=== PATIENT | male | born 1935 | race Caucasian/White ===

== ENCOUNTER → 2023-04-10 | Day surgery (SDC) | payer MEDICARE, OTHER ==
[~2023-04-10] VITALS: Ht 177.8 cm; Wt 79.8 kg
[~2023-04-10] MED LIST: ACET-2708 PO; ALLO300T2 PO; AMLO2.5T45 PO; ASPI-1497 PO; ATOR-2 PO; BALANCED SALT IRRIG SOLN COMB1 500ML OP NR; BENZ100C86 PO; CHOL2000 PO; DONE10TA43 PO; FENTANYL CITRATE/PF 50MCG/ML 5ML VIAL ONE; GENTAMICIN SULF 40MG/ML 2ML VIAL ONE; GUAI-793 PO; HYALURONATE SODIUM 10 MG/ML 0.55ML SYRINGE IO ONE; HYDROMORPHONE HCL/PF 2MG/ML CPJ IV PRN; LABETALOL 5MG/ML SYR 20 MG/4 ML SYRINGE IV PRN; LACT-36 PO; LORA10TA7 PO; MEPERIDINE HCL/PF 25MG/ML CPJ IV PRN; METHYLPREDNISOLONE SOD SUCC 40MG/ML (ACT-O-VIAL) ONE; MIDAZOLAM HCL 2 MG/2 ML VIAL ONE; ONDANSETRON HCL 4MG/2ML INJ IV PRN; PHENYLEPHRINE 2.5% OPHTH 15 DROP/ML BOTTLE RIGHTEYE ONE; POLY17PO43 PO; PRAM0.128 PO; PROPOFOL 200MG/20ML VIAL IV ONE; QUET100T34 PO; QUET25TA36 PO; SENN-257 PO; TAMS-11 PO; TOBRAMYCIN/DEXAMETHASONE OPTH DROPS 2.5ML ONE; TRAZ-251 PO; TROPICAMIDE 1% OPHTH DROPS 15ML RIGHTEYE ONE
[2023-04-10 08:26] LABS: BASOPHILS % 0.4 % (0.0-2.0); EOSINOPHILS % 1.4 % (0.0-5.0); HEMATOCRIT. 44.3 % (42.0-52.0); HEMOGLOBIN. 14.6 g/dL (14.0-18.0); LYMPHOCYTES % 9.7 % (20.0-50.0); MEAN CORPUSCULAR HEMOGLOBIN 30.4 pg (28.0-32.0); MEAN CORPUSCULAR HGB CONC 33.1 g/dL (31.0-37.0); MEAN CORPUSCULAR VOLUME 91.9 fL (80.0-94.0); MEAN PLATELET VOLUME 9.2 fl (7.4-10.4); MONOCYTES % 5.8 % (2.0-8.0); NEUTROPHILS % 82.7 % (40.0-76.0); PLATELET 166 x1000/uL (130-400); RED BLOOD CELL COUNT 4.82 mill/uL (4.7-6.1); RED CELL DISTRIBUTION WIDTH 14.9 % (11.6-14.6); WHITE BLOOD COUNT 13.2 x1000/uL (4.5-11.0)
[2023-04-10 08:36] LABS: CALCIUM 9.7 mg/dL (8.7-10.4); CARBON DIOXIDE 27 mEq/L (21-32); CHLORIDE 104 mEq/L (98-107); CREATININE 1.1 mg/dL (0.6-1.3); GLUCOSE 106 mg/dL (70-105); POTASSIUM 3.5 mEq/L (3.5-5.1); SODIUM 139 mEq/L (136-145); UREA NITROGEN BLOOD 14 mg/dL (9-23)
== END | disposition home or self-care (01) ==
LOC: OR 07:57
PROVIDERS: ATTEND Ophthalmology
DX: H25.89 Other age-related cataract (principal); I10 Essential (primary) hypertension; J44.9 Chronic obstructive pulmonary disease, unspecified; K21.9 Gastro-esophageal reflux disease without esophagitis; N40.0 Benign prostatic hyperplasia without lower urinary tract symptoms; M19.90 Unspecified osteoarthritis, unspecified site; M10.9 Gout, unspecified; Z86.73 Personal history of transient ischemic attack (TIA), and cerebral infarction without residual deficits; Z79.899 Other long term (current) drug therapy; Z98.890 Other specified postprocedural states
CPT/HCPCS: 80048; 85025; 36415; 93005; 67005; 66984; J3010; J2920; J2250; J2704; J3490; A4217; Z7610 ×21; V2630; J1580